=== PATIENT | male | born 1980 | race Caucasian/White ===

== ENCOUNTER 2022-07-21 17:11 | Inpatient (IN) | payer MEDICARE ==
[~2022-07-21] VITALS: Ht 172.7 cm; Wt 71.9 kg
--- NOTE | 2022-07-21 17:18 | NUR ---
Not able to assess patients mental status. Patient stares and does not answer to questions. No signs of distress or discomfort. Discussed plan of care, patient does not verbalized agreement. All safety precautions taken.
[2022-07-21] MEDS ORDERED: ACET-868 PO (17:28)
[2022-07-21] MEDS ORDERED: LOPE2CAP40 PO (17:28)
[2022-07-21] MEDS ORDERED: CLON0.1T PO (17:28)
[2022-07-21] MEDS ORDERED: ONDA4TAB5 PO (17:28)
[2022-07-21] MEDS ORDERED: MAGN400O6 PO (17:28)
[2022-07-21] MEDS ORDERED: DIVA-78 PO (17:28)
[2022-07-21] MEDS ORDERED: OLAN20TA3 PO (17:28)
[2022-07-21] MEDS ORDERED: HYDR50TA61 PO (17:28)
[2022-07-21 17:55] LABS: BASOPHILS % (AUTO) 0.3 % (0.0-2.0); HEMATOCRIT 44 % (39-51); HEMOGLOBIN 14.8 g/dL (13.5-17.5); LYMPHOCYTES # (AUTO) 2.2 K/uL (0.8-4.8); LYMPHOCYTES % (AUTO) 21.6 % (20.0-44.0); MEAN CORPUSCULAR HGB CONC 34 g/dl (31.0-36.0); MEAN CORPUSCULAR VOLUME 94 fL (80-96); MONOCYTES # (AUTO) 0.6 K/uL (0.1-1.30); MONOCYTES % (AUTO) 6.1 % (2.0-12.0); NEUTROPHILS # (AUTO) 7.2 K/uL (1.8-8.9); PLATELET COUNT (AUTO) 138 K/uL (150-450); RED BLOOD CELL COUNT(AUTO) 4.65 MIL/uL (4.5-6.0); WHITE BLOOD COUNT (AUTO) 10.1 K/uL (4.3-11.0)
--- NOTE | 2022-07-21 17:55 | NUR ---
Urine collected, sent to lab
[2022-07-21 18:03] LABS: CALCIUM, SERUM 8.9 mg/dL (8.5-10.1); CARBON DIOXIDE 26 mmol/L (21-32); CHLORIDE 99 mmol/L (98-107); CREATININE 1.1 mg/dL (0.6-1.3); GLUCOSE 95 mg/dL (74-106); POTASSIUM 3.6 mmol/L (3.5-5.1); SODIUM SERUM 134 mmol/L (136-145); UREA NITROGEN, BLOOD 9 mg/dL (7-18)
[2022-07-21 18:10] LABS: ALANINE AMINOTRANSFERASE 22 U/L (12-78); ALKALINE PHOSPHATASE 70 U/L (46-116); ASPARTATE AMINOTRANSFERASE 15 U/L (15-37); BILIRUBIN,DIRECT 0.1 mg/dL (0.0-0.2); BILIRUBIN,TOTAL 0.3 mg/dL (0.2-1.0); TOTAL PROTEIN, SERUM 6.8 g/dL (6.4-8.2)
[2022-07-21 18:11] LABS: ALCOHOL, BLOOD < 3 mg/dL (0-0)
--- NOTE | 2022-07-21 18:17 | NUR ---
Patient with no signs of distress or discomfort. Patient does not participate with assessment, stares but no response or nod. All safety precautions taken, will continue to monitor
[2022-07-21 18:24] LABS: BILIRUBIN,URINE NEGATIVE (NEGATIVE); COLOR,URINE YELLOW (YELLOW); LEUKOCYTE ESTERASE ,URINE NEGATIVE (NEGATIVE); NITRITE, URINE NEGATIVE (NEGATIVE); PROTEIN,URINE NEGATIVE (NEGATIVE); UGLUCOSE NEGATIVE (NEGATIVE); UROBILINOGEN,URINE 0.2 EU/dL (0.2)
--- NOTE | 2022-07-21 19:08 | NUR ---
CALLED PBX OPERATOR
--- NOTE | 2022-07-21 19:25 | NUR ---
Pt is noted sleeping and in Restraints as report is given by the off going nurse that, Pt was brought in from SNF due to S/P Being Verbally and Physically Aggressive to Staff. Pt care continue as he is been monitor closely.
--- NOTE | 2022-07-21 21:40 | NUR ---
Pt remain responsive but sleeping with no s/s off distress or C/O pain . Pt care continue as he will be monitor closely.
--- NOTE | 2022-07-21 23:50 | NUR ---
Pt care continue as he is been monitor closely with no S/S off distress noted at these hour.
--- NOTE | 2022-07-22 01:33 | NUR ---
Pt is sleeping with no S/S off distress. Pt care continue.
--- NOTE | 2022-07-22 03:30 | NUR ---
Pt remain full code , responsive but very sleepy with no S/S off distress. Pt care continue as he is been monitor closely.
--- NOTE | 2022-07-22 04:05 | NUR ---
Pt care continue as report is given to the GPS RN CHINTAN.
[2022-07-22 04:30] VITALS: BP 122/78
--- NOTE | 2022-07-22 04:30 | NUR ---
GPS ADMISSION NOTE, RECEIVED PATIENT FROM [facility]. PATIENT ARRIVED ON THIS UNIT AT 0430 VIA WHEELCHAIR WITH 1 HOOP BENDING MACHINE OPERATOR ESCORT. PATIENT ADMITTED ON A 5150 HOLD FOR GD. PER HOLD PATIENT HAS BEEN AGGRESSIVE AND IS NOT ANSWERING QUESTIONS. PATIENT JUDGMENT IS IMPAIRED AND HE HAS POOR INSIGHT. PATIENT IS NOT ABLE TO PROVIDE FOR HIS FOOD, FPC, OR CLOTHING DUE TO MENTAL DISORDER. THE 5150 WAS REVIEWED AND THE DOCUMENTATION IN THE 5150 HOLD APPEARS TO REFLECT THE PRESENTATION OF THE PATIENT. UPON FACE TO FACE ASSESSMENT PATIENT IS NOTED TO BEING UNCOOPERATIVE, AND REFUSING TO ANSWER QUESTIONS. PATIENT IS CURRENTLY LYING IN BED AWAKE, HAS NO S/S OR COMPLAINTS OF PAIN. PATIENT IS DISPLAYING NO S/S OF APPARENT DISTRESS. PATIENT BREATHING IS UNLABORED WITH EQUAL RISE AND FALL OF THE CHEST. PATIENT IS ALERT AND ORIENTATED X 1 ON ROOM AIR. PATIENT ASSISTED WITH TURING AND REPOSITIONING Q2HR AND PRN FOR COMFORT AND CIRCULATION. PATIENT HAS NO NEEDS AT THIS TIME. PATIENT DENIES SUICIDE IDEATIONS AND HOMICIDAL IDEATIONS AT THIS TIME. PATIENT REFUSED TO SIGNS ANY PAPER WORK. PATIENT ADVISED OF HIS HOLD AND PATIENT RIGHTS BOOKLET GIVEN. PATIENT IS UNDER THE PSYCHIATRIC CARE OF DR. DEVI AND THE MEDICAL CARE OF DR BARDALES. PATIENT BELONGINGS WERE INVENTORIED AND CHECKED FOR CONTRABAND. ALL CONTRABAND REMOVED AND STORED IN PATIENT HALLWAY LOCKER. PATIENT ADVANCED DIRECTIVES PREFERENCE, IMMUNIZATIONS QUESTIONER, NECESSARY PAPERWORK COMPLETED. PATIENT REFUSED SKIN ASSESSMENT. PATIENT ORIENTATED TO ROOM, FLOOR, AND STAFF WITH ALL QUESTIONS ANSWERED. PATIENT EDUCATED ON THE USE OF THE CALL NUNN. PATIENT BED SIDE RAILS ARE UP X 2 FOR SAFETY. PATIENT BED IS LOCKED, LOW AND I WILL CONTINUE TO MONITOR THIS PATIENT Q 15 MIN WITH THE HELP OF STAFF TO MAINTAIN SAFETY.
[2022-07-22] MEDS ORDERED: ACETAMINOPHEN 325 MG TABLET PO PRN ×2 (05:00→12:00)
[2022-07-22] MEDS ORDERED: MAG HYDROX/AL HYDROX/SIMETH 30 ML UDC PO PRN (05:00)
[2022-07-22] MEDS ORDERED: MAGNESIUM HYDROXIDE 30 ML UDC PO PRN ×2 (05:00→12:00)
[2022-07-22] MEDS ORDERED: BLOOD SUGAR DIAGNOSTIC 1 EACH STRIP IN ONE (05:00)
[2022-07-22] MEDS ORDERED: TEMAZEPAM 7.5 MG CAPSULE PO PRN (05:00)
[2022-07-22 08:00] VITALS: BP 118/77
--- NOTE | 2022-07-22 09:39 | NUR ---
REMI Clinical Note: SW placed on a 5150 hold for GD. Pt was aggressive at his facility. Patient resides at [address] [address]; ). REMI spoke with peace Parsons ([phone]) who stated that pt is welcomed back. REMI will contact pt's brother lE ([phone]) to discuss treatment/discharge plan.
--- NOTE | 2022-07-22 09:39 | NUR ---
REMI Initial Discharge Note: Patient resides at [address] [address]; ). REMI spoke with peace Parsons ([phone]) who stated that pt is welcomed back. REMI will contact pt's brother El ([phone]) to discuss treatment/discharge plan. REMI will work with the MD, family, and treatment team.
--- NOTE | 2022-07-22 10:44 | NUR ---
REMI Family Contact: REMI contacted pt's brother El ([phone]) and notified of pt's admission. SW discussed treatment/discharge plan. He would want pt to return back to [facility] when stable.
[2022-07-22] MEDS ORDERED: LOPERAMIDE HCL (2 MG CAP) 2 MG CAPSULE PO PRN (12:00)
[2022-07-22] MEDS ORDERED: CLONIDINE HCL 0.1 MG TABLET PO PRN (12:00)
[2022-07-22] MEDS: HALOPERIDOL 5 MG TABLET PO SCH ×2 (14:08→17:19)
[2022-07-22] MEDS: DIVALPROEX SODIUM 125 MG CAP.SPRINK PO SCH ×2 (14:08→17:19)
--- NOTE | 2022-07-22 18:11 | NUR ---
RN-NOTES PATIENT STAYS IN THE ROOM INTERMITTENTLY SLEEPING ,GUARDED A/O X1,CALM ,QUIET, MINIMAL INTERACTION WITH STAFF.PATIENT REFUSED GROUPS. COMPLIANT WITH MEDICATIONS.PATIENT ABLE TO AMBULATE TO THE BATHROOM WITH STEADY GAIT. ALL NEEDS ATTENDED AND ANTICIPATED. WILL CONT. MONITORING FOR SAFETY AND BEHAVIOR.WILL ENDORSE TO INCOMING SHIFT FOR CONTINUITY OF CARE.
--- NOTE | 2022-07-22 20:19 | NUR ---
RN NOTES :PATIENT RESTING IN ROOM .ALERT AND ORIENTED X1-2. PATIENT IS EASILY AGITATED ,DISHELVED COOPERATIVE/UNCOOPERATIVE AT TIMES, DISORIENTED,GUARDED, SUSPICIOUS, ANXIOUS, AND ISOLATIVE. ENCOURAGED TO VERBALIZED ANY FEELING OR CONCERN. NEEDS FREQUENTLY REDIRECTIONS,, DENIES SI/HI AT THIS TIME. WILL CONTINUE TO MONITOR Q15 FOR SAFETY AND BEHAVIOR.
[2022-07-22] MEDS: OLANZAPINE ZYDIS 5 MG TAB.RAPDIS PO SCH (21:18)
[2022-07-23 08:00] VITALS: BP 100/60
[2022-07-23] MEDS: DIVALPROEX SODIUM 125 MG CAP.SPRINK PO SCH ×2 (09:23→16:35)
[2022-07-23] MEDS: OLANZAPINE ZYDIS 5 MG TAB.RAPDIS PO SCH ×2 (09:23→21:18)
[2022-07-23] MEDS: HALOPERIDOL 5 MG TABLET PO SCH ×2 (09:24→16:35)
--- NOTE | 2022-07-23 17:55 | NUR ---
RN-NOTES PATIENT REFUSED LAB DRAW TODAY,EXPLAINED RISK AND BENEFITS BUT PATIENT REFUSED TO TALK.
--- NOTE | 2022-07-23 18:18 | NUR ---
RN-NOTES PATIENT ISOLATIVE IN THE ROOM INTERMITTENTLY SLEEPING ,GUARDED A/O X1,CALM ,QUIET, MINIMAL INTERACTION WITH STAFF.PATIENT REFUSED GROUPS. COMPLIANT WITH MEDICATIONS.PATIENT AMBULATE TO THE BATHROOM WITH STEADY GAIT. ALL NEEDS ATTENDED AND ANTICIPATED. WILL CONT. MONITORING FOR SAFETY AND BEHAVIOR.WILL ENDORSE TO INCOMING SHIFT FOR CONTINUITY OF CARE.
--- NOTE | 2022-07-23 19:30 | NUR ---
GPS RN NOTE, RECEIVED PATIENT AWAKE AND IN BED, NO S/S OR COMPLAINTS OF PAIN AT THIS TIME. PATIENT IS DISPLAYING NO S/S OF APPARENT DISTRESS AT THIS TIME. PATIENT BREATHING IS UNLABORED WITH EQUAL RISE AND FALL OF THE CHEST. PATIENT IS ALERT AND ORIENTED X 2 ON ROOM AIR WITH A SPO2 97%. PATIENT IS COMPLIANT WITH MEDICATIONS, ISOLATIVE, NON VERBAL, AND COOPERATIVE. PATIENT DENIES SUICIDAL AND HOMICIDAL IDEATIONS AT THIS TIME. PATIENT ASSISTED WITH TURNING AND REPOSITIONING Q2HR AND PRN FOR COMFORT AND CIRCULATION. PATIENT HAS NO NEEDS AT THIS TIME. PATIENT EDUCATED ON THE USE OF THE CALL NUNN. PATIENT BED SIDE RAILS UP X 2 FOR SAFETY. PATIENT BED IS LOCKED, LOW, WITH BED ALARM ON. WILL CONTINUE TO MONITOR THIS PATIENT Q15 MINUTES WITH THE HELP OF STAFF TO MAINTAIN SAFETY.
[2022-07-24 08:00] VITALS: BP 99/59
[2022-07-24] MEDS: DIVALPROEX SODIUM 125 MG CAP.SPRINK PO SCH ×2 (08:24→16:33)
[2022-07-24] MEDS: HALOPERIDOL 5 MG TABLET PO SCH ×2 (08:24→16:33)
[2022-07-24] MEDS: OLANZAPINE ZYDIS 5 MG TAB.RAPDIS PO SCH ×2 (08:27→21:18)
--- NOTE | 2022-07-24 09:45 | NUR ---
RN-CO: RECEIVED PATIENT IN HIS ROOM STANDING. DENIED PAIN AND DISCOMFORTS, DISHEVELED, UNKEMPT AND MALODOROUS. HE IS ISOLATIVE AND WITHDRAWN, REFUSED TO ATTEND GROUP AND REFUSED TO SHOWER. HE TOOK HIS MEDICATIONS WITH EASE. HE MUMBLES AT TIMES. I WILL CONTINUE TO MONITOR AND ENCOURAGE TO VENTILATE HIS FEELINGS.
[2022-07-24 16:00] VITALS: BP 105/80
[2022-07-24] MEDS ORDERED: ENSURE ENLIVE CHOC 237 ML CAN PO SCH (17:00)
[2022-07-24 20:46] VITALS: BP 103/67
[2022-07-24] MEDS: ENSURE ENLIVE 237 ML LIQUID (VANILLA) PO SCH (21:20)
[2022-07-25 08:00] VITALS: BP 98/65
[2022-07-25] MEDS: DIVALPROEX SODIUM 125 MG CAP.SPRINK PO SCH ×2 (08:30→17:33)
[2022-07-25] MEDS: OLANZAPINE ZYDIS 5 MG TAB.RAPDIS PO SCH ×2 (08:30→21:06)
[2022-07-25] MEDS: HALOPERIDOL 5 MG TABLET PO SCH ×2 (08:31→17:32)
[2022-07-25] MEDS: ENSURE ENLIVE CHOC 237 ML CAN PO SCH ×3 (08:39→17:33)
[2022-07-25 17:23] VITALS: BP 127/74
[2022-07-25 19:37] VITALS: BP 126/72
[2022-07-25] MEDS: ENSURE ENLIVE 237 ML LIQUID (VANILLA) PO SCH (21:08)
[2022-07-26 08:00] VITALS: BP 97/51
[2022-07-26] MEDS: ENSURE ENLIVE CHOC 237 ML CAN PO SCH ×3 (08:11→17:47)
[2022-07-26] MEDS: HALOPERIDOL 5 MG TABLET PO SCH ×2 (09:37→17:46)
[2022-07-26] MEDS: OLANZAPINE ZYDIS 5 MG TAB.RAPDIS PO SCH ×2 (09:37→21:13)
[2022-07-26] MEDS: DIVALPROEX SODIUM 125 MG CAP.SPRINK PO SCH ×2 (09:37→17:47)
[2022-07-26 16:00] VITALS: BP 102/64
--- NOTE | 2022-07-26 18:50 | NUR ---
RN CLOSING NOTES: PATIENT ISOLATIVE IN THE ROOM ,GUARDED A/O X1,CALM ,QUIET, MINIMAL INTERACTION WITH STAFF.PATIENT OCCASIONALLY ATTENDS GROUPS. COMPLIANT WITH MEDICATIONS.PATIENT AMBULATE TO THE BATHROOM AND IN HALLWAY WITH STEADY GAIT. ALL NEEDS ATTENDED AND ANTICIPATED. WILL CONT. MONITORING FOR SAFETY AND BEHAVIOR.WILL ENDORSE TO INCOMING SHIFT FOR CONTINUITY OF CARE.
[2022-07-26 19:43] VITALS: BP 111/61
[2022-07-26] MEDS: ENSURE ENLIVE 237 ML LIQUID (VANILLA) PO SCH (21:13)
--- NOTE | 2022-07-26 21:19 | NUR ---
Pt A/O x1. Pt is calm, quiet and guarded, lying in bed. Responsive to voice and tactile stimuli. Respiration even and unlabored without SOB noted. No s/s of any kind of distress. Pt is compliant with care. Took PM meds and ensure PO and tolerated well. Will continue to monitor. Q 15 mins for safety. Will endorse to next shift.
[2022-07-27 08:00] VITALS: BP 105/59
[2022-07-27] MEDS: ENSURE ENLIVE CHOC 237 ML CAN PO SCH ×3 (08:02→16:24)
[2022-07-27] MEDS: DIVALPROEX SODIUM 125 MG CAP.SPRINK PO SCH ×2 (08:34→16:24)
[2022-07-27] MEDS: HALOPERIDOL 5 MG TABLET PO SCH ×2 (08:35→16:24)
[2022-07-27] MEDS: clonazePAM 0.5 MG TABLET PO PRN (09:19)
--- NOTE | 2022-07-27 09:20 | NUR ---
NURSE NOTE: PT C/O ANXIETY. REQUESTED SOMETHING TO HELP HIM AT THIS TIME. KLONOPIN PO ADMINISTERED ORDERED. PT SRINIVASAN WELL. WILL CONT TO MONITOR.
[2022-07-27] MEDS: OLANZAPINE ZYDIS 5 MG TAB.RAPDIS PO SCH ×2 (10:01→22:03)
--- NOTE | 2022-07-27 10:20 | NUR ---
NURSE NOTE: PT CALM AT THIS TIME. KLONOPIN EFFECTIVE AT THIS TIME. WILL CONT TO MONITOR.
--- NOTE | 2022-07-27 11:51 | NUR ---
Court Notification: REMI contacted pt's brother El ([phone]) and left a voicemail of [phone] hearing.
--- NOTE | 2022-07-27 11:52 | NUR ---
Court Hearing: Patient's court hearing for 8250 was today and it was upheld for GD.
[2022-07-27 16:00] VITALS: BP 115/64
[2022-07-27 20:22] VITALS: BP 98/56
[2022-07-27 21:30] VITALS: BP 116/73
[2022-07-27] MEDS: ENSURE ENLIVE 237 ML LIQUID (VANILLA) PO SCH (21:39)
[2022-07-28 08:00] VITALS: BP 86/50
[2022-07-28] MEDS: OLANZAPINE ZYDIS 5 MG TAB.RAPDIS PO SCH ×2 (08:38→21:37)
[2022-07-28] MEDS: ENSURE ENLIVE CHOC 237 ML CAN PO SCH ×3 (08:38→17:17)
[2022-07-28] MEDS: HALOPERIDOL 5 MG TABLET PO SCH ×2 (08:39→16:42)
[2022-07-28] MEDS: DIVALPROEX SODIUM 125 MG CAP.SPRINK PO SCH ×2 (08:39→16:42)
--- NOTE | 2022-07-28 09:53 | NUR ---
Called the office of Dr. Pisano for the consult.
--- NOTE | 2022-07-28 10:54 | NUR ---
RN Notes: Received pt. awake in bed, non interactive to staffs. Ate 100% for breakfast and compliant on meds. Pt. requested for coffee, interacts minimally to staffs. Encouraged to attend group activity and encouraged to take shower. Needs attended and will continue to monitor for safety.
[2022-07-28 12:28] LABS: THYROID STIMULATING HORMONE 1.953 uIU/mL (0.358-3.74)
--- NOTE | 2022-07-28 17:04 | NUR ---
Pt. refused for MRI at this time
[2022-07-28 18:55] VITALS: BP 129/62
--- NOTE | 2022-07-28 19:30 | NUR ---
GPS RN NOTE: RECEIVED PT IS SLEEPING ON THE BED, NO S/S OR COMPLAINTS OF PAIN AT THIS TIME.PT IS DISPLAYING NO S/S OF APPARENT DISTRESS AT THIS TIME. PT BREATHING IS UNLABORED WITH EQUAL RISE AND FALL OF THE CHEST. ALERT AND ORIENTED X 1-2, ON ROOM AIR WITH A SPO2 98% PT COOPERATIVE , ISOLATIVE IN THE ROOM , MUTE AT TIMES . AMBULATORY TO THE BATHROOM WITHOUT ASSIST. BED LOCKED AND LOWER.WILL CONTINUE TO MONITOR Q 15 MIN TO MAINTAIN SAFETY.
[2022-07-28 21:13] VITALS: BP 99/57
[2022-07-28] MEDS: ENSURE ENLIVE 237 ML LIQUID (VANILLA) PO SCH (21:37)
--- NOTE | 2022-07-28 21:38 | NUR ---
GPS RN NOTE, PATIENT VITAL SIGNS ARE FOLLOWS B/P 99/57, TEMP 97.5, RESPIRATIONS 19, PULSE 65, SPO2 98% ON ROOM AIR. INFORMED DR DEVI OF MY FINDINGS. DR DEVI ORDERED TO HOLD ZYPREXA ZYDIS 10MG PO 2200 SCHEDULED. ALL ORDERS NOTED NAD CARRIED OUT. WILL CONTINUE TO MONITOR THIS PATIENT WITH THE HELP OF STAFF.
[2022-07-29 08:00] VITALS: BP 109/58
[2022-07-29] MEDS: HALOPERIDOL 5 MG TABLET PO SCH ×2 (08:20→16:12)
[2022-07-29] MEDS: DIVALPROEX SODIUM 125 MG CAP.SPRINK PO SCH ×2 (08:20→16:12)
[2022-07-29] MEDS: OLANZAPINE ZYDIS 5 MG TAB.RAPDIS PO SCH ×2 (08:20→21:26)
[2022-07-29] MEDS: ENSURE ENLIVE CHOC 237 ML CAN PO SCH ×3 (08:22→17:06)
--- NOTE | 2022-07-29 09:04 | NUR ---
Dr. William gave an order to change service to Dr. Montes.
--- NOTE | 2022-07-29 09:30 | NUR ---
RN Notes: Received pt. asleep in bed, breathing is even and unlabored. Ate 100% for breakfast and compliant on meds. Pt. is non verbal and follows command. Encouraged to take shower and encouraged to attend group activity. Needs attended and will continue to monitor for safety.
[2022-07-29 16:00] VITALS: BP 109/64
[2022-07-30 08:00] VITALS: BP 93/58
[2022-07-30] MEDS: DIVALPROEX SODIUM 125 MG CAP.SPRINK PO SCH ×2 (08:01→16:23)
[2022-07-30] MEDS: OLANZAPINE ZYDIS 5 MG TAB.RAPDIS PO SCH ×2 (08:01→21:27)
[2022-07-30] MEDS: ENSURE ENLIVE CHOC 237 ML CAN PO SCH ×3 (08:01→17:54)
[2022-07-30] MEDS: HALOPERIDOL 5 MG TABLET PO SCH ×2 (08:02→16:23)
--- NOTE | 2022-07-30 09:35 | NUR ---
RN Notes: Received pt. asleep in bed, breathing is even and unlabored. Ate 100% for breakfast and compliant on meds. Pt. is non verbal and follows command. Encouraged to take shower and encouraged to attend group activity. No distress and no agitation noted. Needs attended and will continue to monitor for safety.
[2022-07-30 16:00] VITALS: BP 98/69
[2022-07-30 20:00] VITALS: BP 107/60
[2022-07-31 08:00] VITALS: BP 95/67
[2022-07-31] MEDS: OLANZAPINE ZYDIS 5 MG TAB.RAPDIS PO SCH ×2 (08:21→21:01)
[2022-07-31] MEDS: HALOPERIDOL 5 MG TABLET PO SCH ×2 (08:21→16:35)
[2022-07-31] MEDS: ENSURE ENLIVE CHOC 237 ML CAN PO SCH ×3 (08:22→16:35)
[2022-07-31] MEDS: DIVALPROEX SODIUM 125 MG CAP.SPRINK PO SCH ×2 (08:22→16:35)
[2022-07-31 16:00] VITALS: BP 114/69
[2022-08-01 08:00] VITALS: BP 100/60
[2022-08-01] MEDS: ENSURE ENLIVE CHOC 237 ML CAN PO SCH ×3 (08:29→17:58)
[2022-08-01] MEDS: DIVALPROEX SODIUM 125 MG CAP.SPRINK PO SCH ×2 (08:51→17:58)
[2022-08-01] MEDS: HALOPERIDOL 5 MG TABLET PO SCH ×2 (08:51→17:58)
[2022-08-01] MEDS: OLANZAPINE ZYDIS 5 MG TAB.RAPDIS PO SCH ×2 (09:00→21:19)
--- NOTE | 2022-08-01 09:48 | NUR ---
zyprexa not available in [facility] ghost writer notified pharmacy and ghost writer is awaiting medication. will administer once medication arrives.
[2022-08-01 16:00] VITALS: BP 103/62
[2022-08-01 20:00] VITALS: BP 116/78
[2022-08-01 21:14] VITALS: BP 116/78
[2022-08-02 08:00] VITALS: BP 104/63
[2022-08-02] MEDS: ENSURE ENLIVE CHOC 237 ML CAN PO SCH ×3 (08:57→17:38)
[2022-08-02] MEDS: OLANZAPINE ZYDIS 5 MG TAB.RAPDIS PO SCH ×2 (09:24→22:23)
[2022-08-02] MEDS: DIVALPROEX SODIUM 125 MG CAP.SPRINK PO SCH ×2 (09:24→17:38)
[2022-08-02] MEDS: HALOPERIDOL 5 MG TABLET PO SCH ×2 (09:24→17:38)
[2022-08-02 16:00] VITALS: BP 116/83
--- NOTE | 2022-08-02 18:05 | NUR ---
PT UNWILLING TO GO TO MRI AT THIS TIME..
[2022-08-02 20:34] VITALS: BP 109/70
[2022-08-02] MEDS ORDERED: OLANZAPINE 10 MG TABLET ONE (22:12)
[2022-08-03 08:00] VITALS: BP 100/55
[2022-08-03] MEDS: ENSURE ENLIVE CHOC 237 ML CAN PO SCH ×3 (08:51→17:22)
[2022-08-03] MEDS: OLANZAPINE ZYDIS 5 MG TAB.RAPDIS PO SCH ×2 (09:50→21:15)
[2022-08-03] MEDS: DIVALPROEX SODIUM 125 MG CAP.SPRINK PO SCH ×2 (09:50→16:42)
[2022-08-03] MEDS: HALOPERIDOL 5 MG TABLET PO SCH ×2 (09:50→16:42)
--- NOTE | 2022-08-03 10:26 | NUR ---
REMI Referral: REMI sent clinicals to [facility] ([phone]) to [facility] for placement. REMI sent H & P, progress notes and medication list.
[2022-08-03] MEDS: clonazePAM 0.5 MG TABLET PO PRN (11:51)
--- NOTE | 2022-08-03 11:51 | NUR ---
NURSE NOTE: PT TO HAVE MRI. ANXIOUS AT THIS TIME. CLONOPIN ADMIN ORDERED. PT SRINIVASAN WELL. WILL CONT TO MONITOR.
--- NOTE | 2022-08-03 12:20 | NUR ---
NURSE NOTE: PT CALM AT THIS TIME. KLONOPIN EFFECTIVE AT THIS TIME. PT DOWN TO MRI AT THIS TIME. WILL CONT TO MONITOR.
[2022-08-03 16:00] VITALS: BP 101/61
[2022-08-03 20:12] VITALS: BP 115/80
--- NOTE | 2022-08-04 07:10 | NUR ---
CIVIL DESIGN SPECIALIST OPENING NOTE PATIENT AWAKE, CALM AND NON-VERBAL,PATIENT MOVE HEAD FOR YES AND NO ANSWER; PATIENT MAKES NEED KNOWN VIA WRITING ON [place]. PATIENT DENIES PAIN, NO S/S OF RESPIRATORY DISTRESS NOTED. AMBULATORY STEADY GAIT NOTED. SAFETY MEASURES IN PLACE, BED LOCKED TO THE LOWEST POSITION. TABLE WITHIN REACH. CONT. TO MONITOR.
[2022-08-04 08:00] VITALS: BP 94/62
[2022-08-04] MEDS: OLANZAPINE ZYDIS 5 MG TAB.RAPDIS PO SCH ×2 (10:09→21:47)
[2022-08-04] MEDS: HALOPERIDOL 5 MG TABLET PO SCH ×2 (10:10→16:33)
[2022-08-04] MEDS: DIVALPROEX SODIUM 125 MG CAP.SPRINK PO SCH ×2 (10:10→16:33)
[2022-08-04 16:00] VITALS: BP 98/55
[2022-08-04] MEDS: ENSURE ENLIVE CHOC 237 ML CAN PO SCH ×2 (18:26→18:27)
--- NOTE | 2022-08-04 18:45 | NUR ---
TEACHER OF THE HEARING IMPAIRED NOTE PATIENT HAS BEEN ABLE TO MAKE HIS NEEDS KNOWN BY MOVING HIS HEAD FOR YES AND NO. ALSO WRITING ON [place] TO REQUEST FOOD OR COFFEE. PATIENT IS ABLE TO TALK VERY CLEAR.
--- NOTE | 2022-08-04 18:55 | NUR ---
BRAZER HELPER INDUCTION CLOSING NOTE PATIENT AWAKE, TALKING ON THE PHONE. DENIES DISCOMFORT,DRINKING COFFEE. PATIENT IS AMBULATORY. SAFETY MEASURES IN PLACE. BED TO THE LOWEST POSITION. I WILL ENDORSE TO THE FOLLOWING NURSE.
[2022-08-04 20:00] VITALS: BP 126/85
--- NOTE | 2022-08-04 20:05 | NUR ---
RN NOTE :- RECEIVED PATIENT AWAKE AND WALKING, IN RESTROOM,NO S/S OR COMPLAINTS OF PAIN AT THIS TIME. PATIENT IS DISPLAYING NO S/S OF APPARENT DISTRESS AT THIS TIME. PATIENT BREATHING IS UNLABORED WITH EQUAL RISE AND FALL OF THE CHEST. PATIENT IS ALERT AND ORIENTED X 2 ON ROOM AIR WITH A SPO2 97%. PATIENT IS COMPLIANT WITH MEDICATIONS, COOPERATIVE. PATIENT DENIES SUICIDAL AND HOMICIDAL IDEATIONS AT THIS TIME. PATIENT EDUCATED ON THE USE OF THE CALL NUNN. PATIENT BED SIDE RAILS UP X 2 FOR SAFETY. PATIENT BED IS LOCKED, LOW, WITH BED ALARM ON. WILL CONTINUE TO MONITOR THIS PATIENT Q15 MINUTES WITH THE HELP OF STAFF TO MAINTAIN SAFETY.
--- NOTE | 2022-08-05 06:35 | NUR ---
RN CLOSING NOTES:- PATIENT IS SLEEPING ON THE ROOM ,GUARDED A/O X1,CALM ,QUIET, MINIMAL INTERACTION WITH STAFF. COMPLIANT WITH MEDICATIONS.ALL NEEDS ATTENDED AND ANTICIPATED. WILL CONT. MONITORING FOR SAFETY AND BEHAVIOR.WILL ENDORSE TO INCOMING SHIFT FOR CONTINUITY OF CARE.
[2022-08-05 08:00] VITALS: BP 100/58
[2022-08-05] MEDS: ENSURE ENLIVE CHOC 237 ML CAN PO SCH ×3 (08:38→16:13)
[2022-08-05] MEDS: HALOPERIDOL 5 MG TABLET PO SCH ×2 (08:39→16:12)
[2022-08-05] MEDS: OLANZAPINE ZYDIS 5 MG TAB.RAPDIS PO SCH ×2 (08:39→21:56)
[2022-08-05] MEDS: DIVALPROEX SODIUM 125 MG CAP.SPRINK PO SCH ×2 (08:39→16:12)
[2022-08-05 16:01] VITALS: BP 119/75
--- NOTE | 2022-08-05 18:14 | NUR ---
RN-NOTES PATIENT ISOLATIVE IN THE ROOM GUARDED,QUIET A/O X1,OUT FOR NEEDS ONLY ,MINIMAL INTERACTION WITH THE STAFF. ENCOURAGED TO VERBALIZE FEELINGS AND CONCERN TO THE STAFF AND ATTEND GROUPS. PATIENT PREFERS TO STAY IN THE ROOM AND REST.AMBULATORY STEADY GAIT.ALL NEEDS ATTENDED AND ANTICIPATED. WILL CONT.MONITORING FOR SAFETY AND BEHAVIOR.WILL ENDORSE TO INCOMING SHIFT/NURSE FOR THE CONTINUITY OF CARE.
--- NOTE | 2022-08-06 06:51 | NUR ---
GPS RN NOTE: PATIENT RESTING IN BED 8 HOURS OF SLEEP, NO S/S OF DISTRESS OR DISCOMFORT. PT. BEHAVIOR WAS COOPERTIVE , ISOLATIVE , A/OX 2. NO S/S OF RESPIRATORY DISTRESS. MED COMPLIANT, SAFETY PRECAUTIONS MAINTAINED, ALL NEEDS ATTENDED AND ANTICIPATED, WILL CONTINUE TO MONITOR FOR SAFETY AND BEHAVIOR.
[2022-08-06 08:00] VITALS: BP 94/60
[2022-08-06] MEDS: OLANZAPINE ZYDIS 5 MG TAB.RAPDIS PO SCH ×2 (08:12→21:20)
[2022-08-06] MEDS: DIVALPROEX SODIUM 125 MG CAP.SPRINK PO SCH ×2 (08:12→17:02)
[2022-08-06] MEDS: HALOPERIDOL 5 MG TABLET PO SCH ×2 (08:12→17:02)
[2022-08-06] MEDS: ENSURE ENLIVE CHOC 237 ML CAN PO SCH ×3 (08:15→17:01)
[2022-08-06 16:00] VITALS: BP 102/79
--- NOTE | 2022-08-06 18:57 | NUR ---
med compliant,pleasant,quiet.
[2022-08-06 20:52] VITALS: BP 100/60
[2022-08-07 08:00] VITALS: BP 105/58
[2022-08-07] MEDS: ENSURE ENLIVE CHOC 237 ML CAN PO SCH ×3 (08:09→17:47)
[2022-08-07] MEDS: OLANZAPINE ZYDIS 5 MG TAB.RAPDIS PO SCH ×2 (08:10→21:11)
[2022-08-07] MEDS: DIVALPROEX SODIUM 125 MG CAP.SPRINK PO SCH ×2 (08:10→17:50)
[2022-08-07] MEDS: HALOPERIDOL 5 MG TABLET PO SCH ×2 (08:10→17:49)
[2022-08-07 16:00] VITALS: BP 111/73
[2022-08-07 20:17] VITALS: BP 114/69
[2022-08-08] MEDS: ENSURE ENLIVE CHOC 237 ML CAN PO SCH ×2 (07:55→11:48)
[2022-08-08 08:00] VITALS: BP 116/73
--- NOTE | 2022-08-08 08:10 | NUR ---
REMI Discharge Note: Patient will be discharged to alf facility [facility] [address], [place] [address]; ). Please arrange transportation at 1PM. Immunopathologist spoke with Issa farm consultant at [facility]; ([phone]), who stated patient will be accepted today. SW contacted pts brother El ([phone]) and left a voicemail. Patient is alert and oriented x2 and is unable to plan for self-care. Patient denies any suicidal or homicidal ideations. Patient is aware and agreeable with discharge plans. Patient will continue to follow-up with (psychiatrist) Dr. Montes [address], [place] [address]; ([phone]) and (telehealth case manager) Dr. Mojica [address], [place] [address]; ([phone]). Patient presents with euthymic and congruent mood.
--- NOTE | 2022-08-08 08:22 | NUR ---
RN- NOTES MEDICATIONS RECONCILED WITH DR. KOLB FOR DISCHARGE.
[2022-08-08] MEDS: DIVALPROEX SODIUM 125 MG CAP.SPRINK PO SCH (08:55)
[2022-08-08] MEDS: OLANZAPINE ZYDIS 5 MG TAB.RAPDIS PO SCH (08:55)
[2022-08-08] MEDS: HALOPERIDOL 5 MG TABLET PO SCH (08:56)
--- NOTE | 2022-08-08 09:35 | NUR ---
RN- NOTES MEDICATIONS RECONCILED WITH DR. MUÑOZ, AND ORDER TO DISCONTINUE HOLD AND DISCHARGE TO [facility] COMPLETED.
--- NOTE | 2022-08-08 13:30 | NUR ---
RN- DISCHARGE NOTES PATIENT DISCHARGED TO [facility], [place] [address], IN STABLE CONDITION. COMPLIANT WITH MEDICATIONS AND COOPERATIVE WITH TREATMENT PLANS. PATIENT DENIES SUICIDAL/HOMICIDAL IDEATION AND AUDITORY/VISUAL HALLUCINATIONS. BEHAVIOR IMPROVED, PSYCHIATRIST TREATMENT PLANS MET, MEDICAL TREATMENT PLANS DEFERRED FOR CONTINUAL MONITORING. EDUCATED PATIENT ABOUT AFTER CARE PLAN AND COPY PROVIDED. RETURNED ALL PERSONAL BELONGINGS TO PATIENT. PATIENT IS WITHOUT DISTRESS, CALM, COOPERATIVE, AND VITAL SIGNS WERE TAKEN, B/P 155/80, PULSE 100, R 18, AND O2 SAT 95% ON ROOM AIR. MEDICATIONS RECONCILED WITH PSYCHIATRIST DR. MUÑOZ AND MED THERAPIST SPEECH DR. KOLB. PSYCHIATRIC ORDER TO DISCONTINUE HOLD AND DISCHARGE TO [facility] COMPLETED. REPORT GIVEN TO CHEL SANCHEZ, AT [facility] FOR CONTINUITY OF CARE. PATIENT SIGNED ALL DISCHARGE PAPERWORK. SKIN INTACT, PHOTOS NOT REQUIRED. PATIENT LEFT THE UNIT AT 1330 VIA AMBULANCE ON A GURNEY.
== END 2022-08-08 13:30 | DRG 885 ==
LOC: ER 17:14 → GPS 07-22 03:49
PROVIDERS: ADMIT Psychiatry & Neurology Psychiatry; ATTEND Nurse Practitioner Acute Care
DX: F25.0 Schizoaffective disorder, bipolar type (principal); E87.1 Hypo-osmolality and hyponatremia; F29 Unspecified psychosis not due to a substance or known physiological condition; I10 Essential (primary) hypertension; F19.10 Other psychoactive substance abuse, uncomplicated; Z79.899 Other long term (current) drug therapy; F17.200 Nicotine dependence, unspecified, uncomplicated; F39 Unspecified mood [affective] disorder; Z66 Do not resuscitate; Z91.199 Patient's noncompliance with other medical treatment and regimen due to unspecified reason; F41.9 Anxiety disorder, unspecified; V89.2XXS Person injured in unspecified motor-vehicle accident, traffic, sequela; R41.9 Unspecified symptoms and signs involving cognitive functions and awareness
CPT/HCPCS: 36415; 70551-TC; 80048-TC; 80076-TC; 80164-TC; 82607-TC; 84425; 84443-TC; 85025-TC; 87081-TC; 97116-TC; 97530-TC; C9803; G0480

== ENCOUNTER 2023-01-03 19:27 | Emergency (ER) | payer MEDICARE, OTHER ==
[~2023-01-03] VITALS: Ht 168.9 cm; Wt 71.7 kg
[~2023-01-03 19:27] MED LIST: ACET-868 PO; CLON0.1T PO; LOPE2CAP40 PO; MAGN400O6 PO; ONDA4TAB5 PO
[2023-01-03 20:35] LABS: BASOPHILS % (AUTO) 0.1 % (0.0-2.0); EOSINOPHILS # (AUTO) 0.1 K/uL (0.0-0.7); EOSINOPHILS % (AUTO) 0.7 % (0.0-6.0); HEMATOCRIT 42 % (39-51); HEMOGLOBIN 14.5 g/dL (13.5-17.5); LYMPHOCYTES # (AUTO) 1.7 K/uL (0.8-4.8); LYMPHOCYTES % (AUTO) 14.8 % (20.0-44.0); MEAN CORPUSCULAR HEMOGLOBIN 32 PG (26.0-33.0); MEAN CORPUSCULAR HGB CONC 35 g/dl (31.0-36.0); MEAN CORPUSCULAR VOLUME 92 fL (80-96); MONOCYTES # (AUTO) 0.9 K/uL (0.1-1.30); MONOCYTES % (AUTO) 8.2 % (2.0-12.0); NEUTROPHILS # (AUTO) 8.8 K/uL (1.8-8.9); NEUTROPHILS % (AUTO) 76.2 % (43.0-81.0); PLATELET COUNT (AUTO) 157 K/uL (150-450); RED BLOOD CELL COUNT(AUTO) 4.55 MIL/uL (4.5-6.0); RED CELL DISTRIBUTION WIDTH 12.6 % (11.5-15.0); WHITE BLOOD COUNT (AUTO) 11.6 K/uL (4.3-11.0)
[2023-01-03 20:42] LABS: CALCIUM, SERUM 9.4 mg/dL (8.5-10.1); CARBON DIOXIDE 27 mmol/L (21-32); CHLORIDE 95 mmol/L (98-107); CREATININE 0.8 mg/dL (0.6-1.3); GLUCOSE 88 mg/dL (74-106); SODIUM SERUM 130 mmol/L (136-145); UREA NITROGEN, BLOOD 8 mg/dL (7-18)
[2023-01-03 20:49] LABS: ACETAMINOPHEN <10 ug/ml (10-30); ALANINE AMINOTRANSFERASE 35 U/L (12-78); ALBUMIN 4.3 g/dL (3.4-5.0); ALCOHOL, BLOOD < 3 mg/dL (0-10); ALKALINE PHOSPHATASE 66 U/L (46-116); ASPARTATE AMINOTRANSFERASE 29 U/L (15-37); BILIRUBIN,DIRECT 0.1 mg/dL (0.0-0.2); BILIRUBIN,TOTAL 0.5 mg/dL (0.2-1.0); TOTAL PROTEIN, SERUM 7.2 g/dL (6.4-8.2)
[2023-01-03 21:03] LABS: AMPHETAMINE, URINE NEGATIVE (NEGATIVE); BARBITURATE, URINE NEGATIVE (NEGATIVE); BENZODIAZEPINE, URINE NEGATIVE (NEGATIVE); CANNABINOID, URINE NEGATIVE (NEGATIVE); COCCAINE, URINE NEGATIVE (NEGATIVE); OPIATE, URINE NEGATIVE (NEGATIVE); PHENCYCLIDINE SCREEN,URINE NEGATIVE (NEGATIVE)
[2023-01-03 21:12] LABS: APPEARANCE,URINE CLEAR (CLEAR); BILIRUBIN,URINE NEGATIVE (NEGATIVE); BLOOD, URINE NEGATIVE Ery/uL (NEGATIVE); COLOR,URINE LIGHT YELLOW (YELLOW); KETONES,URINE NEGATIVE (NEGATIVE); LEUKOCYTE ESTERASE ,URINE NEGATIVE (NEGATIVE); NITRITE, URINE NEGATIVE (NEGATIVE); PH,URINE 7.5 (5.0-8.0); PROTEIN,URINE NEGATIVE (NEGATIVE); UGLUCOSE NEGATIVE (NEGATIVE); UROBILINOGEN,URINE 0.2 EU/dL (0.2)
[2023-01-04 10:07] VITALS: BP 122/77; TEMP 98.3; O2SAT 98
== END 2023-01-04 10:07 ==
LOC: ER 19:33
DX: F22 Delusional disorders (principal); F91.1 Conduct disorder, childhood-onset type; F29 Unspecified psychosis not due to a substance or known physiological condition; R45.1 Restlessness and agitation; I11.9 Hypertensive heart disease without heart failure; Z79.899 Other long term (current) drug therapy
CPT/HCPCS: 36415; 80048-TC; 80076-TC; 85025-TC; G0480